=== PATIENT | male | born 1960 | race Caucasian/White ===

== ENCOUNTER 2017-04-17 23:43 | Emergency (ER) | payer OTHER ==
[~2017-04-17 23:43] MED LIST: IBUPROFEN400 M1 PO
== END 2017-04-18 01:20 ==
LOC: EDMED 23:43
DX: S82.424A Nondisplaced transverse fracture of shaft of right fibula, initial encounter for closed fracture (principal); W22.8XXA Striking against or struck by other objects, initial encounter; Y92.69 Other specified industrial and construction area as the place of occurrence of the external cause